=== PATIENT | female | born 1945 | race Hispanic/Latino ===

== ENCOUNTER 2019-01-11 19:20 | Emergency (ER) | payer OTHER ==
[~2019-01-11 19:20] MED LIST: DOXA1TAB2 PO; DYMISTA IH; IPRATROPIUM IH; LEVO88TA7 PO; LOSA100T58 PO; PRAV20TA4 PO
[2019-01-11] MEDS ORDERED: KETOROLAC TROMETHAMINE 30MG/ML ONE (19:53)
== END 2019-01-11 20:22 | disposition home or self-care (01) ==
LOC: EDH 19:20
DX: S83.92XA Sprain of unspecified site of left knee, initial encounter (principal); I10 Essential (primary) hypertension; E03.9 Hypothyroidism, unspecified; E78.00 Pure hypercholesterolemia, unspecified; Z90.49 Acquired absence of other specified parts of digestive tract; X58.XXXA Exposure to other specified factors, initial encounter; Y93.89 Activity, other specified; Y92.89 Other specified places as the place of occurrence of the external cause; Y99.8 Other external cause status
CPT/HCPCS: 73562; 96372; 99283; J1885